=== PATIENT | female | born 1940 | race African-American/Black ===

== ENCOUNTER → 2017-12-13 | Outpatient (CLI) | payer MEDICARE, MEDICAID ==
[~2017-12-13] MED LIST: LEVO25TA7 PO; REGADENOSON 0.4 MG/5 ML IV ONE
== END ==
LOC: NM 07:31
PROVIDERS: ATTEND Internal Medicine Cardiovascular Disease
DX: R06.00 Dyspnea, unspecified (principal); R94.31 Abnormal electrocardiogram [ECG] [EKG]; N18.9 Chronic kidney disease, unspecified; I27.20 Pulmonary hypertension, unspecified
CPT/HCPCS: 78452; A9500; J2785

== ENCOUNTER → 2018-01-17 | Outpatient (CLI) | payer MEDICARE, MEDICAID ==
[~2018-01-17] MED LIST changes: +GADOBENATE DIMEGLUMINE 529 MG/ML 10ML IV ONE; -REGADENOSON 0.4 MG/5 ML IV ONE
== END | disposition home or self-care (01) ==
LOC: MRI 08:20
PROVIDERS: ATTEND Internal Medicine Cardiovascular Disease
DX: I65.22 Occlusion and stenosis of left carotid artery (principal); I27.20 Pulmonary hypertension, unspecified; N18.9 Chronic kidney disease, unspecified; R94.31 Abnormal electrocardiogram [ECG] [EKG]
CPT/HCPCS: 70547; A9577

== ENCOUNTER → 2018-02-23 | Outpatient (CLI) | payer MEDICARE, MEDICAID ==
[~2018-02-23] MED LIST changes: -GADOBENATE DIMEGLUMINE 529 MG/ML 10ML IV ONE
== END | disposition home or self-care (01) ==
LOC: RAD 09:21
PROVIDERS: ATTEND Specialist
DX: M79.604 Pain in right leg (principal); M79.605 Pain in left leg; I13.0 Hypertensive heart and chronic kidney disease with heart failure and stage 1 through stage 4 chronic kidney disease, or unspecified chronic kidney disease; E11.22 Type 2 diabetes mellitus with diabetic chronic kidney disease; N18.9 Chronic kidney disease, unspecified; I50.9 Heart failure, unspecified; E78.5 Hyperlipidemia, unspecified; E03.9 Hypothyroidism, unspecified; Z87.891 Personal history of nicotine dependence
CPT/HCPCS: 93970

== ENCOUNTER 2018-10-19 19:27 | Inpatient (IN) | payer MEDICARE, MEDICAID ==
[~2018-10-19] VITALS: Ht 170.2 cm; Wt 90.3 kg
[2018-10-19] MEDS ORDERED: SODIUM CHLORIDE 0.9% 1,000 ML IV ONE (20:56)
[2018-10-19] MEDS ORDERED: SODIUM CHLORIDE 0.9% 1000ML BAG (SEPSIS BOLUS) IV ONE (21:15)
[2018-10-19] MEDS ORDERED: VANCOMYCIN 500 MG PREMIX 100 ML IV SCH (21:15)
[2018-10-19] MEDS ORDERED: PIPERACILLIN/TAZ 2.25G PREMIX 50 ML IV ONE (21:15)
[2018-10-20] VITALS (9 sets, daily range): BP systolic 89–106; BP diastolic 49–67
[2018-10-20 00:20] LABS: BASOPHILS % 0.9 % (0.0-2.0); EOSINOPHILS % 2.4 % (0.0-5.0); LYMPHOCYTES % 13.4 % (20.0-50.0); MEAN CORPUSCULAR VOLUME 104.6 fL (81.0-99.0); MEAN PLATELET VOLUME 8.5 fl (7.4-10.4); MONOCYTES % 7.8 % (2.0-8.0); NEUTROPHILS % 75.5 % (40.0-76.0); PLATELET 259 x1000/uL (130-400); RED BLOOD CELL COUNT 1.94 mill/uL (4.2-5.4); RED CELL DISTRIBUTION WIDTH 19.3 % (11.6-14.6)
[2018-10-20 00:27] LABS: CHLORIDE 100 mEq/L (98-107)
[2018-10-20 00:29] LABS: INR 1.1; PARTIAL THROMBOPLASTIN TIME 23.9 sec (23.4-31.0); PROTHROMBIN TIME 10.7 sec (9.1-11.1)
[2018-10-20 00:31] LABS: HEMATOCRIT. 20.3 % (36.0-48.0); HEMOGLOBIN. 6.4 g/dL (12.0-16.0)
[2018-10-20 02:40] LABS: CLARITY URINE TURBID (CLEAR); COLOR URINE YELLOW (YELLOW); KETONES URINE TRACE (NEGATIVE); LEUKOCYTE ESTERASE URINE 3+ (NEGATIVE); NITRITE URINE NEGATIVE (NEGATIVE); OCCULT BLOOD URINE 2+ (NEGATIVE); PH URINE 5.5 (4.5-8.0); PROTEIN URINE 3+ (NEGATIVE); SPECIFIC GRAVITY URINE 1.017 (1.005-1.030)
[2018-10-20 02:49] LABS: CREATINE KINASE MB FRACTION 4.5 ng/mL (0.5-3.6)
[2018-10-20] MEDS ORDERED: ONDANSETRON HCL 4MG/2ML INJ IV PRN (10:15)
[2018-10-20] MEDS ORDERED: CEFTRIAXONE 1,000 MG in DEXTROSE 5% WATER 50 ML IV SCH (11:15)
[2018-10-20] MEDS ORDERED: PANTOPRAZOLE SODIUM 40 MG/VIAL IV NR (11:15)
[2018-10-20] MEDS ORDERED: LEVOTHYROXINE SODIUM 50MCG TABLET PO NR (11:15)
[2018-10-20] MEDS: IPRATROPIUM/ALBUTEROL 0.5-3(2.5)MG/3ML NEB HHN SCH ×3 (12:00→20:19)
[2018-10-20] MEDS: CEFTRIAXONE 1 G PREMIX 50 ML IV SCH (14:19)
[2018-10-20] MEDS: LIDOCAINE 5% PATCH TOP SCH (14:36)
[2018-10-20 17:44] LABS: BASOPHILS % 1.1 % (0.0-2.0); EOSINOPHILS % 2.7 % (0.0-5.0); HEMATOCRIT. 23.5 % (36.0-48.0); HEMOGLOBIN. 7.4 g/dL (12.0-16.0); LYMPHOCYTES % 9.3 % (20.0-50.0); MEAN CORPUSCULAR HEMOGLOBIN 32.1 pg (28.0-32.0); MEAN CORPUSCULAR VOLUME 101.5 fL (81.0-99.0); MEAN PLATELET VOLUME 8.7 fl (7.4-10.4); MONOCYTES % 6.2 % (2.0-8.0); NEUTROPHILS % 80.7 % (40.0-76.0); PLATELET 266 x1000/uL (130-400); RED BLOOD CELL COUNT 2.31 mill/uL (4.2-5.4); RED CELL DISTRIBUTION WIDTH 19.8 % (11.6-14.6)
[2018-10-20] MEDS ORDERED: MIDODRINE HCL 5MG TABLET PO ONE (17:45)
[2018-10-20 18:01] LABS: CREATINE KINASE MB FRACTION 5.9 ng/mL (0.5-3.6)
[2018-10-20 18:13] LABS: FOLIC ACID (FOLATE) SERUM 9.2 ng/mL (>5.38)
[2018-10-20] MEDS ORDERED: ALBUMIN HUMAN 25GM/100ML (25%) IV ONE (19:00)
[2018-10-20] MEDS: ACETAMINOPHEN 325MG TABLET PO PRN (20:26)
[2018-10-20] MEDS ORDERED: DEXTROSE 50% WATER 50ML SYRINGE IV PRN (21:45)
[2018-10-21] VITALS (7 sets, daily range): BP systolic 93–125; BP diastolic 48–62
[2018-10-21 00:30] LABS: CREATINE KINASE MB FRACTION 5.7 ng/mL (0.5-3.6)
[2018-10-21] MEDS: EPOETIN ALFA 10000UNITS/ML VIAL SUBCUT SCH (00:54)
[2018-10-21] MEDS: IPRATROPIUM/ALBUTEROL 0.5-3(2.5)MG/3ML NEB HHN SCH ×6 (01:14→20:28)
[2018-10-21] MEDS: BLOOD SUGAR DIAGNOSTIC STRIP TEST SCH ×4 (06:38→21:00)
[2018-10-21] MEDS: INSULIN LISPRO 100 UNITS/ML SUBCUT SCH ×4 (06:38→21:00)
[2018-10-21 08:26] LABS: BG BASE EXCESS -2.1 mmol/L (-2.0-2.0); BG CARBOXYHEMOGLOBIN 1.6 % (0.5-1.5); BG DEOXYHEMOGLOBIN 3.5 % (0.0-5.0); BG FRACTION INSPIRED OXYGEN 28; BG HCO3 ACT 23.8 mmol/L (22.0-26.0); BG METHEMOGLOBIN 0.3 % (0.0-1.5); BG OXYGEN SATURATION 96.4 % (92.0-98.5); BG OXYHEMOGLOBIN 94.6 % (94.0-97.0); BG PCO2 45.7 mmHg (35.0-45.0); BG PH 7.334 (7.350-7.450); BG PO2 92.6 mmHg (75.0-100.0); BG SAMPLE SITE RIGHT RADIAL; BG VENT MODE NASAL CANNULA
[2018-10-21] MEDS: PANTOPRAZOLE SODIUM 40 MG/VIAL IV SCH (08:47)
[2018-10-21] MEDS: LEVOTHYROXINE SODIUM 50MCG TABLET PO SCH (08:47)
[2018-10-21] MEDS: FOLIC ACID/VITAMIN B COMP W-C TABLET PO SCH (08:48)
[2018-10-21] MEDS: CEFTRIAXONE 1 G PREMIX 50 ML IV SCH (08:48)
[2018-10-21] MEDS: DOCUSATE SODIUM 250MG CAPSULE PO SCH (08:48)
[2018-10-21] MEDS: MIDODRINE HCL 5MG TABLET PO SCH ×3 (08:48→17:44)
[2018-10-21 08:49] LABS: BASOPHILS % 0.8 % (0.0-2.0); EOSINOPHILS % 4.2 % (0.0-5.0); HEMATOCRIT. 25.3 % (36.0-48.0); HEMOGLOBIN. 8.2 g/dL (12.0-16.0); LYMPHOCYTES % 7.3 % (20.0-50.0); MEAN CORPUSCULAR HEMOGLOBIN 32.2 pg (28.0-32.0); MEAN CORPUSCULAR VOLUME 99.3 fL (81.0-99.0); MEAN PLATELET VOLUME 8.3 fl (7.4-10.4); MONOCYTES % 8.2 % (2.0-8.0); NEUTROPHILS % 79.5 % (40.0-76.0); PLATELET 209 x1000/uL (130-400); RED BLOOD CELL COUNT 2.55 mill/uL (4.2-5.4); RED CELL DISTRIBUTION WIDTH 19.6 % (11.6-14.6)
[2018-10-21] MEDS: LIDOCAINE 5% PATCH TOP SCH (08:49)
[2018-10-21 09:09] LABS: CREATINE KINASE MB FRACTION 5.1 ng/mL (0.5-3.6)
[2018-10-21] MEDS ORDERED: FURO40TA5 PO (15:47)
[2018-10-21] MEDS ORDERED: LEVO100T9 PO (15:47)
[2018-10-21] MEDS ORDERED: BUDE6.9H INH (15:47)
[2018-10-21] MEDS ORDERED: ATOR40TA70 PO (15:47)
[2018-10-21] MEDS ORDERED: SEVE800T8 PO (15:47)
[2018-10-21] MEDS ORDERED: FUROSEMIDE 40MG/4ML VIAL IVP NR (17:15)
[2018-10-21] MEDS ORDERED: LORAZEPAM 2MG/ML CPJ IV NR (23:14)
[2018-10-21] MEDS ORDERED: LORAZEPAM 0.5MG TABLET PO SCH (23:15)
[2018-10-22] VITALS (7 sets, daily range): BP systolic 114–208; BP diastolic 65–106
[2018-10-22] MEDS: IPRATROPIUM/ALBUTEROL 0.5-3(2.5)MG/3ML NEB HHN SCH ×6 (00:34→20:46)
[2018-10-22] MEDS: BLOOD SUGAR DIAGNOSTIC STRIP TEST SCH ×4 (06:40→20:39)
[2018-10-22 07:44] LABS: INR 1.1; PARTIAL THROMBOPLASTIN TIME 26.1 sec (23.4-31.0); PROTHROMBIN TIME 10.7 sec (9.1-11.1)
[2018-10-22] MEDS: INSULIN LISPRO 100 UNITS/ML SUBCUT SCH ×4 (07:53→20:39)
[2018-10-22 08:08] LABS: HEMATOCRIT. 27.4 % (36.0-48.0); HEMOGLOBIN. 8.9 g/dL (12.0-16.0); MEAN CORPUSCULAR HEMOGLOBIN 32.3 pg (28.0-32.0); MEAN CORPUSCULAR VOLUME 99.7 fL (81.0-99.0); MEAN PLATELET VOLUME 8.7 fl (7.4-10.4); PLATELET 234 x1000/uL (130-400); RED BLOOD CELL COUNT 2.74 mill/uL (4.2-5.4)
[2018-10-22 08:31] LABS: CHLORIDE 103 mEq/L (98-107)
[2018-10-22] MEDS: MIDODRINE HCL 5MG TABLET PO SCH ×3 (09:00→18:27)
[2018-10-22] MEDS: DOCUSATE SODIUM 250MG CAPSULE PO SCH ×2 (09:00→09:44)
[2018-10-22] MEDS: FOLIC ACID/VITAMIN B COMP W-C TABLET PO SCH ×2 (09:00→09:44)
[2018-10-22] MEDS: LIDOCAINE 5% PATCH TOP SCH (09:00)
[2018-10-22] MEDS: PANTOPRAZOLE SODIUM 40 MG/VIAL IV SCH (09:44)
[2018-10-22] MEDS: CEFTRIAXONE 1 G PREMIX 50 ML IV SCH (09:44)
[2018-10-22] MEDS: METHYLPREDNISOLONE SOD SUCC 40 MG/ML VIAL IV SCH ×2 (10:00→18:26)
[2018-10-22 10:02] LABS: PLATELET ESTIMATE NORMAL
[2018-10-22] MEDS ORDERED: IPRATROPIUM/ALBUTEROL 0.5-3(2.5)MG/3ML NEB HHN PRN (10:30)
[2018-10-22 10:45] LABS: BG BASE EXCESS -0.3 mmol/L (-2.0-2.0); BG CARBOXYHEMOGLOBIN 1.1 % (0.5-1.5); BG DEOXYHEMOGLOBIN 4.7 % (0.0-5.0); BG FRACTION INSPIRED OXYGEN 32; BG HCO3 ACT 26.4 mmol/L (22.0-26.0); BG METHEMOGLOBIN 0.3 % (0.0-1.5); BG OXYGEN SATURATION 95.2 % (92.0-98.5); BG OXYHEMOGLOBIN 93.9 % (94.0-97.0); BG PCO2 53.1 mmHg (35.0-45.0); BG PH 7.314 (7.350-7.450); BG PO2 79.4 mmHg (75.0-100.0); BG SAMPLE SITE RIGHT RADIAL; BG TOTAL HEMOGLOBIN 9.8 g/dL (12.0-18.0); BG VENT MODE NASAL CANNULA
[2018-10-22] MEDS: MONTELUKAST SODIUM 10MG TABLET PO SCH (18:27)
[2018-10-22 18:44] LABS: HEMATOCRIT 28.7 % (36.0-48.0); HEMOGLOBIN 9.1 g/dL (12.0-16.0)
[2018-10-22] MEDS: CLONIDINE 0.1MG TABLET PO PRN (20:16)
[2018-10-22] MEDS ORDERED: HYDRALAZINE 20MG/ML VIAL IV SCH (23:30)
[2018-10-22] MEDS ORDERED: AMLODIPINE 5MG TABLET PO SCH (23:30)
[2018-10-22] MEDS ORDERED: HYDRALAZINE 20MG/ML VIAL IV PRN ×2 (23:30)
[2018-10-22] MEDS ORDERED: HYDRALAZINE 20MG/ML VIAL IV ONE (23:30)
[2018-10-22] MEDS ORDERED: AMLODIPINE 5MG TABLET PO ONE (23:30)
[2018-10-23] VITALS (9 sets, daily range): BP systolic 125–200; BP diastolic 54–116
[2018-10-23] MEDS: IPRATROPIUM/ALBUTEROL 0.5-3(2.5)MG/3ML NEB HHN SCH ×6 (00:27→21:33)
[2018-10-23] MEDS: CLONIDINE 0.1MG TABLET PO PRN ×2 (02:36→21:21)
[2018-10-23] MEDS: METHYLPREDNISOLONE SOD SUCC 40 MG/ML VIAL IV SCH ×3 (02:36→17:56)
[2018-10-23 05:52] LABS: HEMATOCRIT. 28.8 % (36.0-48.0); HEMOGLOBIN. 9.3 g/dL (12.0-16.0); MEAN CORPUSCULAR HEMOGLOBIN 32.6 pg (28.0-32.0); MEAN CORPUSCULAR VOLUME 100.7 fL (81.0-99.0); MEAN PLATELET VOLUME 8.9 fl (7.4-10.4); PLATELET 225 x1000/uL (130-400); RED BLOOD CELL COUNT 2.86 mill/uL (4.2-5.4); RED CELL DISTRIBUTION WIDTH 18.8 % (11.6-14.6)
[2018-10-23] MEDS: BLOOD SUGAR DIAGNOSTIC STRIP TEST SCH ×4 (07:30→21:15)
[2018-10-23] MEDS: INSULIN LISPRO 100 UNITS/ML SUBCUT SCH ×4 (08:00→21:15)
[2018-10-23] MEDS ORDERED: AMLODIPINE 5MG TABLET PO SCH (09:00)
[2018-10-23] MEDS: MIDODRINE HCL 5MG TABLET PO SCH ×4 (09:00→17:00)
[2018-10-23 10:24] LABS: PLATELET ESTIMATE NORMAL
[2018-10-23] MEDS: PANTOPRAZOLE SODIUM 40 MG/VIAL IV SCH (11:13)
[2018-10-23] MEDS: DOCUSATE SODIUM 250MG CAPSULE PO SCH (11:13)
[2018-10-23] MEDS: CEFTRIAXONE 1 G PREMIX 50 ML IV SCH (11:13)
[2018-10-23] MEDS: LEVOTHYROXINE SODIUM 50MCG TABLET PO SCH (11:14)
[2018-10-23] MEDS: AMLODIPINE 5MG TABLET PO SCH ×2 (11:14→21:20)
[2018-10-23] MEDS: FOLIC ACID/VITAMIN B COMP W-C TABLET PO SCH (11:15)
[2018-10-23] MEDS: LIDOCAINE 5% PATCH TOP SCH (13:03)
[2018-10-23] MEDS ORDERED: ALBUMIN HUMAN 12.5GM/50ML (25%) IV PRN (14:45)
[2018-10-23] MEDS: MONTELUKAST SODIUM 10MG TABLET PO SCH (17:56)
[2018-10-23] MEDS: EPOETIN ALFA 10000UNITS/ML VIAL SUBCUT SCH (21:23)
[2018-10-24] VITALS (11 sets, daily range): BP systolic 84–166; BP diastolic 25–89
[2018-10-24] MEDS: METHYLPREDNISOLONE SOD SUCC 40 MG/ML VIAL IV SCH ×3 (01:07→17:45)
[2018-10-24] MEDS: LEVOTHYROXINE SODIUM 50MCG TABLET PO SCH ×2 (07:30→08:37)
[2018-10-24] MEDS: INSULIN LISPRO 100 UNITS/ML SUBCUT SCH ×4 (08:00→21:00)
[2018-10-24] MEDS: BLOOD SUGAR DIAGNOSTIC STRIP TEST SCH ×4 (08:13→21:00)
[2018-10-24] MEDS: IPRATROPIUM/ALBUTEROL 0.5-3(2.5)MG/3ML NEB HHN SCH ×5 (08:13→23:58)
[2018-10-24] MEDS: DOCUSATE SODIUM 250MG CAPSULE PO SCH (08:37)
[2018-10-24] MEDS: CEFTRIAXONE 1 G PREMIX 50 ML IV SCH (08:37)
[2018-10-24] MEDS: FAMOTIDINE 20MG TABLET PO SCH (08:38)
[2018-10-24] MEDS: AMLODIPINE 5MG TABLET PO SCH ×2 (08:38→21:00)
[2018-10-24] MEDS: FOLIC ACID/VITAMIN B COMP W-C TABLET PO SCH (08:38)
[2018-10-24] MEDS: MIDODRINE HCL 5MG TABLET PO SCH ×3 (08:45→17:47)
[2018-10-24] MEDS: LIDOCAINE 5% PATCH TOP SCH (08:47)
[2018-10-24] MEDS ORDERED: LIDOCAINE HCL 1% 20ML VIAL (Pyxis) INJ ONE (13:11)
[2018-10-24] MEDS: MONTELUKAST SODIUM 10MG TABLET PO SCH (17:47)
[2018-10-25] VITALS (12 sets, daily range): BP systolic 84–123; BP diastolic 36–85
[2018-10-25] MEDS: IPRATROPIUM/ALBUTEROL 0.5-3(2.5)MG/3ML NEB HHN SCH ×5 (04:12→20:31)
[2018-10-25] MEDS: BLOOD SUGAR DIAGNOSTIC STRIP TEST SCH ×4 (07:30→21:00)
[2018-10-25] MEDS: INSULIN LISPRO 100 UNITS/ML SUBCUT SCH ×4 (08:00→21:00)
[2018-10-25] MEDS: AMLODIPINE 5MG TABLET PO SCH ×2 (09:00→21:00)
[2018-10-25] MEDS: LIDOCAINE 5% PATCH TOP SCH (09:00)
[2018-10-25] MEDS: CEFTRIAXONE 1 G PREMIX 50 ML IV SCH (10:44)
[2018-10-25] MEDS: FAMOTIDINE 20MG TABLET PO SCH (10:45)
[2018-10-25] MEDS: FOLIC ACID/VITAMIN B COMP W-C TABLET PO SCH (10:45)
[2018-10-25] MEDS: DOCUSATE SODIUM 250MG CAPSULE PO SCH (10:45)
[2018-10-25] MEDS: METHYLPREDNISOLONE SOD SUCC 40 MG/ML VIAL IV SCH ×2 (10:45→18:42)
[2018-10-25] MEDS: MIDODRINE HCL 5MG TABLET PO SCH ×3 (10:45→18:43)
[2018-10-25] MEDS: LEVOTHYROXINE SODIUM 50MCG TABLET PO SCH (10:52)
[2018-10-25] MEDS ORDERED: SIMETHICONE 40 MG/0.6 ML 30ML ONE (15:35)
[2018-10-25] MEDS ORDERED: SODIUM CHLORIDE 0.9% 10ML VIAL ONE (15:35)
[2018-10-25] MEDS ORDERED: FENTANYL CITRATE/PF 50MCG/ML 2ML VIAL ONE (17:02)
[2018-10-25] MEDS ORDERED: MIDAZOLAM HCL 5 MG/5 ML VIAL ONE (17:02)
[2018-10-25] MEDS ORDERED: MIDAZOLAM HCL 5 MG/5 ML VIAL IV PRN (17:14)
[2018-10-25] MEDS ORDERED: FENTANYL CITRATE/PF 50MCG/ML 2ML VIAL IV PRN (17:15)
[2018-10-25] MEDS: MONTELUKAST SODIUM 10MG TABLET PO SCH (18:43)
[2018-10-25] MEDS: EPOETIN ALFA 10000UNITS/ML VIAL SUBCUT SCH (22:50)
[2018-10-25] MEDS: ACETAMINOPHEN 325MG TABLET PO PRN (22:50)
[2018-10-26] VITALS (12 sets, daily range): BP systolic 81–131; BP diastolic 32–77
[2018-10-26] MEDS: IPRATROPIUM/ALBUTEROL 0.5-3(2.5)MG/3ML NEB HHN SCH ×6 (00:22→20:22)
[2018-10-26 06:55] LABS: HEMATOCRIT. 29.1 % (36.0-48.0); HEMOGLOBIN. 9.5 g/dL (12.0-16.0); MEAN CORPUSCULAR HEMOGLOBIN 32.4 pg (28.0-32.0); MEAN CORPUSCULAR VOLUME 99.6 fL (81.0-99.0); MEAN PLATELET VOLUME 8.5 fl (7.4-10.4); PLATELET 200 x1000/uL (130-400); RED BLOOD CELL COUNT 2.92 mill/uL (4.2-5.4); RED CELL DISTRIBUTION WIDTH 17.5 % (11.6-14.6)
[2018-10-26] MEDS: BLOOD SUGAR DIAGNOSTIC STRIP TEST SCH ×4 (07:30→21:00)
[2018-10-26] MEDS: INSULIN LISPRO 100 UNITS/ML SUBCUT SCH ×4 (08:00→21:00)
[2018-10-26] MEDS: LIDOCAINE 5% PATCH TOP SCH (09:00)
[2018-10-26] MEDS: AMLODIPINE 5MG TABLET PO SCH ×2 (09:00→20:49)
[2018-10-26] MEDS: METHYLPREDNISOLONE SOD SUCC 40 MG/ML VIAL IV SCH (09:03)
[2018-10-26] MEDS: CEFTRIAXONE 1 G PREMIX 50 ML IV SCH (09:03)
[2018-10-26] MEDS: MIDODRINE HCL 5MG TABLET PO SCH ×3 (09:05→17:00)
[2018-10-26] MEDS: FAMOTIDINE 20MG TABLET PO SCH (09:05)
[2018-10-26] MEDS: LEVOTHYROXINE SODIUM 50MCG TABLET PO SCH (09:05)
[2018-10-26] MEDS: DOCUSATE SODIUM 250MG CAPSULE PO SCH (09:06)
[2018-10-26] MEDS: FOLIC ACID/VITAMIN B COMP W-C TABLET PO SCH (09:06)
[2018-10-26] MEDS ORDERED: LIDOCAINE HCL/PF 1% 2ML VIAL ONE (14:58)
[2018-10-26 15:51] LABS: PLATELET ESTIMATE NORMAL
[2018-10-26] MEDS: MONTELUKAST SODIUM 10MG TABLET PO SCH (18:12)
[2018-10-27] VITALS (9 sets, daily range): BP systolic 100–157; BP diastolic 70–99
[2018-10-27] MEDS: IPRATROPIUM/ALBUTEROL 0.5-3(2.5)MG/3ML NEB HHN SCH ×6 (00:01→20:50)
[2018-10-27 06:33] LABS: BASOPHILS % 0.3 % (0.0-2.0); HEMOGLOBIN. 9.9 g/dL (12.0-16.0); LYMPHOCYTES % 10.3 % (20.0-50.0); MEAN CORPUSCULAR HEMOGLOBIN 32.1 pg (28.0-32.0); MEAN CORPUSCULAR VOLUME 100.7 fL (81.0-99.0); MEAN PLATELET VOLUME 8.8 fl (7.4-10.4); MONOCYTES % 8.7 % (2.0-8.0); NEUTROPHILS % 79.7 % (40.0-76.0); PLATELET 211 x1000/uL (130-400); RED BLOOD CELL COUNT 3.08 mill/uL (4.2-5.4); RED CELL DISTRIBUTION WIDTH 17.3 % (11.6-14.6)
[2018-10-27] MEDS: LEVOTHYROXINE SODIUM 50MCG TABLET PO SCH (07:49)
[2018-10-27] MEDS: BLOOD SUGAR DIAGNOSTIC STRIP TEST SCH ×4 (07:49→21:00)
[2018-10-27] MEDS: INSULIN LISPRO 100 UNITS/ML SUBCUT SCH ×4 (07:50→21:00)
[2018-10-27] MEDS: FOLIC ACID/VITAMIN B COMP W-C TABLET PO SCH (08:14)
[2018-10-27] MEDS: MIDODRINE HCL 5MG TABLET PO SCH ×3 (08:15→17:00)
[2018-10-27] MEDS: DOCUSATE SODIUM 250MG CAPSULE PO SCH (08:15)
[2018-10-27] MEDS: AMLODIPINE 5MG TABLET PO SCH ×2 (08:15→21:00)
[2018-10-27] MEDS: FAMOTIDINE 20MG TABLET PO SCH (08:15)
[2018-10-27] MEDS: PREDNISONE 20MG TABLET PO SCH (08:16)
[2018-10-27] MEDS: LIDOCAINE 5% PATCH TOP SCH (08:18)
[2018-10-27] MEDS: CEFTRIAXONE 1 G PREMIX 50 ML IV SCH (08:19)
[2018-10-27] MEDS: MONTELUKAST SODIUM 10MG TABLET PO SCH (17:00)
[2018-10-28] VITALS (7 sets, daily range): BP systolic 101–143; BP diastolic 66–86
[2018-10-28] MEDS: BLOOD SUGAR DIAGNOSTIC STRIP TEST SCH ×4 (07:30→20:53)
[2018-10-28] MEDS: INSULIN LISPRO 100 UNITS/ML SUBCUT SCH ×4 (08:00→20:53)
[2018-10-28] MEDS: IPRATROPIUM/ALBUTEROL 0.5-3(2.5)MG/3ML NEB HHN SCH ×3 (08:00→19:53)
[2018-10-28] MEDS: LIDOCAINE 5% PATCH TOP SCH (08:24)
[2018-10-28] MEDS ORDERED: CLONIDINE 0.1MG TABLET PO SCH (08:30)
[2018-10-28] MEDS: MIDODRINE HCL 5MG TABLET PO SCH ×3 (09:00→17:00)
[2018-10-28 10:18] LABS: BASOPHILS % 0.5 % (0.0-2.0); EOSINOPHILS % 0.7 % (0.0-5.0); HEMATOCRIT. 32.3 % (36.0-48.0); HEMOGLOBIN. 10.2 g/dL (12.0-16.0); LYMPHOCYTES % 8.3 % (20.0-50.0); MEAN CORPUSCULAR HEMOGLOBIN 31.7 pg (28.0-32.0); MEAN CORPUSCULAR VOLUME 100.1 fL (81.0-99.0); MEAN PLATELET VOLUME 9.1 fl (7.4-10.4); MONOCYTES % 7.2 % (2.0-8.0); NEUTROPHILS % 83.3 % (40.0-76.0); PLATELET 214 x1000/uL (130-400); RED BLOOD CELL COUNT 3.23 mill/uL (4.2-5.4); RED CELL DISTRIBUTION WIDTH 16.7 % (11.6-14.6)
[2018-10-28] MEDS: LEVOTHYROXINE SODIUM 50MCG TABLET PO SCH (12:59)
[2018-10-28] MEDS: DOCUSATE SODIUM 250MG CAPSULE PO SCH (12:59)
[2018-10-28] MEDS: AMLODIPINE 5MG TABLET PO SCH ×2 (12:59→20:47)
[2018-10-28] MEDS: FOLIC ACID/VITAMIN B COMP W-C TABLET PO SCH (13:00)
[2018-10-28] MEDS: PREDNISONE 20MG TABLET PO SCH (13:00)
[2018-10-28] MEDS: OMEPRAZOLE 20MG CAPSULE EXTENDED RELEASE PO SCH ×2 (13:00→20:47)
[2018-10-28] MEDS: MONTELUKAST SODIUM 10MG TABLET PO SCH (17:00)
[2018-10-29] VITALS (12 sets, daily range): BP systolic 97–139; BP diastolic 45–83
[2018-10-29] MEDS: IPRATROPIUM/ALBUTEROL 0.5-3(2.5)MG/3ML NEB HHN SCH ×4 (00:30→12:49)
[2018-10-29] MEDS: INSULIN LISPRO 100 UNITS/ML SUBCUT SCH ×2 (08:00→12:49)
[2018-10-29] MEDS: BLOOD SUGAR DIAGNOSTIC STRIP TEST SCH ×2 (08:27→12:42)
[2018-10-29] MEDS: AMLODIPINE 5MG TABLET PO SCH (09:00)
[2018-10-29 09:49] LABS: BG BASE EXCESS 0.4 mmol/L (-2.0-2.0); BG CARBOXYHEMOGLOBIN 0.8 % (0.5-1.5); BG DEOXYHEMOGLOBIN 26.7 % (0.0-5.0); BG FRACTION INSPIRED OXYGEN 21; BG HCO3 ACT 27.2 mmol/L (22.0-26.0); BG OXYGEN SATURATION 73.1 % (92.0-98.5); BG OXYHEMOGLOBIN 72.5 % (94.0-97.0); BG PCO2 54.7 mmHg (35.0-45.0); BG PH 7.314 (7.350-7.450); BG PO2 39.8 mmHg (75.0-100.0); BG SAMPLE SITE RIGHT BRACHIAL; BG TOTAL HEMOGLOBIN 10.4 g/dL (12.0-18.0); BG VENT MODE ROOM AIR
[2018-10-29] MEDS: PREDNISONE 20MG TABLET PO SCH (10:01)
[2018-10-29] MEDS: OMEPRAZOLE 20MG CAPSULE EXTENDED RELEASE PO SCH (10:01)
[2018-10-29] MEDS: LEVOTHYROXINE SODIUM 50MCG TABLET PO SCH (10:01)
[2018-10-29] MEDS: DOCUSATE SODIUM 250MG CAPSULE PO SCH (10:02)
[2018-10-29] MEDS: MIDODRINE HCL 5MG TABLET PO SCH ×2 (10:02→14:10)
[2018-10-29] MEDS: FOLIC ACID/VITAMIN B COMP W-C TABLET PO SCH (10:02)
[2018-10-29] MEDS: LIDOCAINE 5% PATCH TOP SCH (10:06)
[2018-10-29] MEDS ORDERED: IOHEXOL-350 100 ML BOTTLE ONE (11:41)
[2018-10-30] MEDS ORDERED: FAMOTIDINE 20MG TABLET PO SCH (09:00)
== END 2018-10-29 15:33 | disposition home or self-care (01) | DRG 720 ==
LOC: ER 21:04 → EDBEDREQ 23:24 → EDBEDREQSVC 10-20 01:12 → EDBEDREQ 10-20 01:12 → 7WST 10-20 02:16 → EDBEDREQ 10-20 02:21 → EDBEDREQTM 10-20 02:21 → EDBEDREQSVC 10-20 05:24 → ENRESERV 10-20 07:33 → 5EST 10-22 11:42
PROVIDERS: ADMIT Emergency Medicine; ATTEND Internal Medicine Geriatric Medicine
PROC: 30233N1 Transfusion of Nonautologous Red Blood Cells into Peripheral Vein, Percutaneous Approach (ICD-10-PCS; principal; 2018-10-20)
PROC: 5A1D70Z Performance of Urinary Filtration, Intermittent, Less than 6 Hours Per Day (ICD-10-PCS; 2018-10-20)
PROC: 5A1D70Z Performance of Urinary Filtration, Intermittent, Less than 6 Hours Per Day (ICD-10-PCS; 2018-10-21)
PROC: 5A1D70Z Performance of Urinary Filtration, Intermittent, Less than 6 Hours Per Day (ICD-10-PCS; 2018-10-22)
PROC: 5A09357 Assistance with Respiratory Ventilation, Less than 24 Consecutive Hours, Continuous Positive Airway Pressure (ICD-10-PCS; 2018-10-23)
PROC: 05HY33Z Insertion of Infusion Device into Upper Vein, Percutaneous Approach (ICD-10-PCS; 2018-10-24)
PROC: B54MZZA Ultrasonography of Right Upper Extremity Veins, Guidance (ICD-10-PCS; 2018-10-24)
PROC: 5A1D70Z Performance of Urinary Filtration, Intermittent, Less than 6 Hours Per Day (ICD-10-PCS; 2018-10-24)
PROC: 5A09357 Assistance with Respiratory Ventilation, Less than 24 Consecutive Hours, Continuous Positive Airway Pressure (ICD-10-PCS; 2018-10-24)
PROC: 0DB68ZX Excision of Stomach, Via Natural or Artificial Opening Endoscopic, Diagnostic (ICD-10-PCS; 2018-10-25)
PROC: 5A1D70Z Performance of Urinary Filtration, Intermittent, Less than 6 Hours Per Day (ICD-10-PCS; 2018-10-25)
PROC: 5A1D70Z Performance of Urinary Filtration, Intermittent, Less than 6 Hours Per Day (ICD-10-PCS; 2018-10-26)
PROC: 5A1D70Z Performance of Urinary Filtration, Intermittent, Less than 6 Hours Per Day (ICD-10-PCS; 2018-10-27)
PROC: 5A09357 Assistance with Respiratory Ventilation, Less than 24 Consecutive Hours, Continuous Positive Airway Pressure (ICD-10-PCS; 2018-10-27)
DX: A41.9 Sepsis, unspecified organism (principal); J96.20 Acute and chronic respiratory failure, unspecified whether with hypoxia or hypercapnia; I13.2 Hypertensive heart and chronic kidney disease with heart failure and with stage 5 chronic kidney disease, or end stage renal disease; K29.61 Other gastritis with bleeding; E11.22 Type 2 diabetes mellitus with diabetic chronic kidney disease; N18.6 End stage renal disease; I08.3 Combined rheumatic disorders of mitral, aortic and tricuspid valves; E11.42 Type 2 diabetes mellitus with diabetic polyneuropathy; I50.23 Acute on chronic systolic (congestive) heart failure; E11.51 Type 2 diabetes mellitus with diabetic peripheral angiopathy without gangrene; D53.9 Nutritional anemia, unspecified; G89.29 Other chronic pain; E66.9 Obesity, unspecified; E03.9 Hypothyroidism, unspecified; Z99.2 Dependence on renal dialysis; D63.8 Anemia in other chronic diseases classified elsewhere; F41.1 Generalized anxiety disorder; I27.20 Pulmonary hypertension, unspecified; J44.1 Chronic obstructive pulmonary disease with (acute) exacerbation; K44.9 Diaphragmatic hernia without obstruction or gangrene; N39.0 Urinary tract infection, site not specified; Z79.51 Long term (current) use of inhaled steroids; Z79.899 Other long term (current) drug therapy; Z90.710 Acquired absence of both cervix and uterus; Z95.820 Peripheral vascular angioplasty status with implants and grafts; Z88.5 Allergy status to narcotic agent; Z88.8 Allergy status to other drugs, medicaments and biological substances; Z68.31 Body mass index [BMI] 31.0-31.9, adult; Z87.891 Personal history of nicotine dependence
CPT/HCPCS: 36415; 36569; 36600; 70498; 71045; 74176; 76937; 78580; 80048; 82270; 82375; 82550; 82553; 82607; 82746; 82805; 82962; 83605; 83880; 84443; 84484; 85014; 85018; 86850; 86900; 86920; 88305; 88312; 88313; 93005; 93306; 93880; 94640; 94660; 96365; 96367; 96368; 96375; 97161; 99285; C1725; C1893; C9113; J0360; J0696; J0885; J1815; J1940; J2060; J2250; J2543; J2920; J3010; J3370; J3490; J7030; J7040; J7050; J7512; J7620; P9016; P9047; Q9967

== ENCOUNTER 2020-01-01 14:09 | Inpatient (IN) | payer MEDICARE, MEDICAID ==
[~2020-01-01] VITALS: Ht 175.3 cm; Wt 93.4 kg
[~2020-01-01 14:09] MED LIST changes: +FURO40TA5 PO; -LEVO25TA7 PO
[2020-01-01] MEDS ORDERED: METHYLPREDNISOLONE SOD SUCC 125 MG/2 ML VIAL IV STA (14:31)
[2020-01-01] MEDS ORDERED: IPRATROPIUM BROMIDE (0.02%) 0.5MG/2.5ML NEB HHN STA (14:31)
[2020-01-01] MEDS ORDERED: MAGNESIUM 2 G PREMIX 50 ML IV ONE (14:45)
[2020-01-01 14:53] LABS: HEMATOCRIT. 30.8 % (36.0-48.0); HEMOGLOBIN. 10.1 g/dL (12.0-16.0); MEAN CORPUSCULAR HEMOGLOBIN 31.5 pg (28.0-32.0); MEAN PLATELET VOLUME 8.9 fl (7.4-10.4); PLATELET 255 x1000/uL (130-400); RED BLOOD CELL COUNT 3.21 mill/uL (4.2-5.4)
[2020-01-01] MEDS: ALBUTEROL (0.083%) 2.5MG/3ML NEB HHN SCH (14:55)
[2020-01-01 15:00] LABS: PROTHROMBIN TIME 10.8 sec (9.6-11.0)
[2020-01-01 15:01] LABS: CHLORIDE 107 mEq/L (98-107)
[2020-01-01 16:28] LABS: PLATELET ESTIMATE NORMAL
[2020-01-01] MEDS ORDERED: MAGNESIUM/ALUMINUM HYDROXIDE/SIMETHICONE 30ML UDC PO PRN (17:45)
[2020-01-01] MEDS ORDERED: IPRATROPIUM/ALBUTEROL 0.5-3(2.5)MG/3ML NEB HHN PRN (17:45)
[2020-01-01] MEDS ORDERED: TEMAZEPAM 15MG CAPSULE PO PRN (17:45)
[2020-01-01] MEDS ORDERED: DIPHENHYDRAMINE 50MG/ML VIAL IV PRN (17:45)
[2020-01-01] MEDS ORDERED: ONDANSETRON HCL 4MG/2ML INJ IV PRN (17:45)
[2020-01-01] MEDS ORDERED: GUAIFENESIN 200MG/10ML SUGAR FREE UDC PO PRN (17:45)
[2020-01-01] MEDS ORDERED: CLONIDINE 0.1MG TABLET PO PRN (17:45)
[2020-01-01] MEDS ORDERED: ACETAMINOPHEN 325MG TABLET PO PRN (17:45)
[2020-01-01 18:15] VITALS: BP 132/100
[2020-01-01 18:23] VITALS: BP 132/100
[2020-01-01] MEDS ORDERED: NEPVIT MT (18:47)
[2020-01-01] MEDS ORDERED: ATOR10TA69 MT (18:47)
[2020-01-01] MEDS ORDERED: SEVE800T8 MT (18:47)
[2020-01-01] MEDS ORDERED: LEVO25TA7 MT (18:47)
[2020-01-01] MEDS ORDERED: BUDE6.9H INH (18:47)
[2020-01-01] MEDS ORDERED: ALBU18HF2 IH (18:47)
[2020-01-01 20:00] VITALS: BP 131/82
[2020-01-01] MEDS: ATORVASTATIN CALCIUM 10MG TABLET PO SCH (21:00)
[2020-01-01] MEDS: IPRATROPIUM/ALBUTEROL 0.5-3(2.5)MG/3ML NEB HHN SCH (21:23)
[2020-01-01] MEDS: BUDESONIDE 0.5MG/2ML NEB HHN SCH (21:24)
[2020-01-01] MEDS: GUAIFENESIN 600MG ER TABLET PO SCH (21:29)
[2020-01-01] MEDS: ENOXAPARIN 40MG/0.4ML SYR SUBCUT SCH (21:29)
[2020-01-01] MEDS: SODIUM CHLORIDE 0.9% INJ 3ML FLUSH IVF SCH (21:30)
[2020-01-01] MEDS: METHYLPREDNISOLONE SOD SUCC 125 MG/2 ML VIAL IV SCH (21:34)
[2020-01-02] VITALS (7 sets, daily range): BP systolic 99–109; BP diastolic 62–71
[2020-01-02] MEDS: IPRATROPIUM/ALBUTEROL 0.5-3(2.5)MG/3ML NEB HHN SCH ×4 (00:52→21:51)
[2020-01-02] MEDS: METHYLPREDNISOLONE SOD SUCC 125 MG/2 ML VIAL IV SCH ×2 (05:04→16:26)
[2020-01-02] MEDS: SODIUM CHLORIDE 0.9% INJ 3ML FLUSH IVF SCH ×3 (05:05→21:41)
[2020-01-02] MEDS: SEVELAMER CARBONATE 800 MG TABLET PO SCH ×3 (08:41→17:50)
[2020-01-02] MEDS: FOLIC ACID/VITAMIN B COMP W-C TABLET PO SCH (08:41)
[2020-01-02] MEDS: CALCITRIOL 0.25MCG CAPSULE PO SCH (08:41)
[2020-01-02] MEDS: GUAIFENESIN 600MG ER TABLET PO SCH ×2 (08:42→20:59)
[2020-01-02] MEDS ORDERED: CHOLECALCIFEROL (VIT D3) 400 UNIT TABLET PO SCH (09:00)
[2020-01-02] MEDS: BUDESONIDE 0.5MG/2ML NEB HHN SCH ×2 (09:14→21:50)
[2020-01-02] MEDS: ENOXAPARIN 40MG/0.4ML SYR SUBCUT SCH (20:59)
[2020-01-02] MEDS: ATORVASTATIN CALCIUM 10MG TABLET PO SCH (21:01)
[2020-01-03 00:17] VITALS: BP 113/75
[2020-01-03] MEDS: IPRATROPIUM/ALBUTEROL 0.5-3(2.5)MG/3ML NEB HHN SCH ×4 (03:28→20:15)
[2020-01-03 04:00] VITALS: BP 95/57
[2020-01-03] MEDS: SODIUM CHLORIDE 0.9% INJ 3ML FLUSH IVF SCH ×3 (06:30→21:08)
[2020-01-03 08:00] VITALS: BP 121/45
[2020-01-03] MEDS: BUDESONIDE 0.5MG/2ML NEB HHN SCH ×2 (08:04→20:10)
[2020-01-03] MEDS: GUAIFENESIN 600MG ER TABLET PO SCH ×2 (08:32→20:06)
[2020-01-03] MEDS: SEVELAMER CARBONATE 800 MG TABLET PO SCH ×3 (08:32→18:32)
[2020-01-03] MEDS: FOLIC ACID/VITAMIN B COMP W-C TABLET PO SCH (08:32)
[2020-01-03] MEDS: ACETAMINOPHEN 325MG TABLET PO PRN (08:32)
[2020-01-03] MEDS: METHYLPREDNISOLONE SOD SUCC 40 MG/ML VIAL IV SCH ×2 (08:32→18:32)
[2020-01-03] MEDS: CALCITRIOL 0.25MCG CAPSULE PO SCH (08:33)
[2020-01-03 12:00] VITALS: BP 105/60
[2020-01-03] MEDS ORDERED: LIDOCAINE HCL 1% 20ML VIAL (Pyxis) INJ ONE (13:29)
[2020-01-03 16:00] VITALS: BP 113/52
[2020-01-03] MEDS ORDERED: IOHEXOL-350 100 ML BOTTLE ONE (16:19)
[2020-01-03 20:00] VITALS: BP 99/50
[2020-01-03] MEDS: ATORVASTATIN CALCIUM 10MG TABLET PO SCH (20:06)
[2020-01-03] MEDS: ENOXAPARIN 40MG/0.4ML SYR SUBCUT SCH (20:07)
[2020-01-04] VITALS: BP 100/50
[2020-01-04] MEDS: IPRATROPIUM/ALBUTEROL 0.5-3(2.5)MG/3ML NEB HHN SCH ×4 (02:38→21:31)
[2020-01-04 04:00] VITALS: BP 98/53
[2020-01-04] MEDS: SODIUM CHLORIDE 0.9% INJ 3ML FLUSH IVF SCH ×2 (05:28→13:29)
[2020-01-04 08:00] VITALS: BP 112/62
[2020-01-04] MEDS: FOLIC ACID/VITAMIN B COMP W-C TABLET PO SCH (08:10)
[2020-01-04] MEDS: CALCITRIOL 0.25MCG CAPSULE PO SCH (08:10)
[2020-01-04] MEDS: SEVELAMER CARBONATE 800 MG TABLET PO SCH ×4 (08:10→17:19)
[2020-01-04] MEDS: METHYLPREDNISOLONE SOD SUCC 40 MG/ML VIAL IV SCH ×2 (08:10→17:20)
[2020-01-04] MEDS: GUAIFENESIN 600MG ER TABLET PO SCH ×2 (08:10→21:01)
[2020-01-04 12:00] VITALS: BP 127/77
[2020-01-04 16:00] VITALS: BP 90/52
[2020-01-04 20:28] VITALS: BP 101/55
[2020-01-04] MEDS: ATORVASTATIN CALCIUM 10MG TABLET PO SCH (21:01)
[2020-01-04] MEDS: ENOXAPARIN 40MG/0.4ML SYR SUBCUT SCH (21:01)
[2020-01-04] MEDS: BUDESONIDE 0.5MG/2ML NEB HHN SCH (21:30)
[2020-01-05 00:17] VITALS: BP 106/61
[2020-01-05] MEDS: IPRATROPIUM/ALBUTEROL 0.5-3(2.5)MG/3ML NEB HHN SCH ×4 (01:16→21:51)
[2020-01-05 04:57] VITALS: BP 100/60
[2020-01-05] MEDS: SODIUM CHLORIDE 0.9% INJ 3ML FLUSH IVF SCH ×3 (05:15→21:14)
[2020-01-05 08:00] VITALS: BP 108/73
[2020-01-05] MEDS: CALCITRIOL 0.25MCG CAPSULE PO SCH (08:45)
[2020-01-05] MEDS: GUAIFENESIN 600MG ER TABLET PO SCH ×2 (08:45→20:30)
[2020-01-05] MEDS: FOLIC ACID/VITAMIN B COMP W-C TABLET PO SCH (08:45)
[2020-01-05] MEDS: SEVELAMER CARBONATE 800 MG TABLET PO SCH ×3 (08:46→17:54)
[2020-01-05] MEDS: METHYLPREDNISOLONE SOD SUCC 40 MG/ML VIAL IV SCH ×2 (10:13→18:05)
[2020-01-05 16:00] VITALS: BP 120/65
[2020-01-05 20:12] VITALS: BP 109/65
[2020-01-05] MEDS: ENOXAPARIN 40MG/0.4ML SYR SUBCUT SCH (20:30)
[2020-01-05] MEDS: ATORVASTATIN CALCIUM 10MG TABLET PO SCH (20:30)
[2020-01-05] MEDS: BUDESONIDE 0.5MG/2ML NEB HHN SCH ×2 (21:12→21:51)
[2020-01-06] VITALS (7 sets, daily range): BP systolic 92–116; BP diastolic 48–68
[2020-01-06] MEDS: IPRATROPIUM/ALBUTEROL 0.5-3(2.5)MG/3ML NEB HHN SCH ×4 (03:01→21:12)
[2020-01-06] MEDS: SODIUM CHLORIDE 0.9% INJ 3ML FLUSH IVF SCH ×3 (05:13→22:13)
[2020-01-06] MEDS: METHYLPREDNISOLONE SOD SUCC 40 MG/ML VIAL IV SCH ×2 (08:44→17:14)
[2020-01-06] MEDS: GUAIFENESIN 600MG ER TABLET PO SCH ×2 (08:44→22:12)
[2020-01-06] MEDS: SEVELAMER CARBONATE 800 MG TABLET PO SCH ×3 (08:44→17:14)
[2020-01-06] MEDS: CALCITRIOL 0.25MCG CAPSULE PO SCH (08:44)
[2020-01-06] MEDS: FOLIC ACID/VITAMIN B COMP W-C TABLET PO SCH (08:44)
[2020-01-06] MEDS: BUDESONIDE 0.5MG/2ML NEB HHN SCH (09:18)
[2020-01-06] MEDS: ACETAMINOPHEN 325MG TABLET PO PRN (11:09)
[2020-01-06] MEDS: ATORVASTATIN CALCIUM 10MG TABLET PO SCH (22:12)
[2020-01-06] MEDS: ENOXAPARIN 40MG/0.4ML SYR SUBCUT SCH (22:12)
[2020-01-07 00:13] VITALS: BP 126/70
[2020-01-07] MEDS: IPRATROPIUM/ALBUTEROL 0.5-3(2.5)MG/3ML NEB HHN SCH ×4 (02:54→20:57)
[2020-01-07 04:00] VITALS: BP 104/55
[2020-01-07 06:18] LABS: HEMATOCRIT. 29.3 % (36.0-48.0); HEMOGLOBIN. 9.6 g/dL (12.0-16.0); MEAN CORPUSCULAR HEMOGLOBIN 31.2 pg (28.0-32.0); MEAN PLATELET VOLUME 9.3 fl (7.4-10.4); PLATELET 262 x1000/uL (130-400); RED BLOOD CELL COUNT 3.06 mill/uL (4.2-5.4); RED CELL DISTRIBUTION WIDTH 15.5 % (11.6-14.6)
[2020-01-07 06:22] LABS: CHLORIDE 101 mEq/L (98-107)
[2020-01-07] MEDS: SODIUM CHLORIDE 0.9% INJ 3ML FLUSH IVF SCH ×3 (06:31→21:15)
[2020-01-07 08:03] VITALS: BP 140/65
[2020-01-07] MEDS: BUDESONIDE 0.5MG/2ML NEB HHN SCH ×2 (09:07→20:57)
[2020-01-07] MEDS: FOLIC ACID/VITAMIN B COMP W-C TABLET PO SCH (09:29)
[2020-01-07] MEDS: METHYLPREDNISOLONE SOD SUCC 40 MG/ML VIAL IV SCH ×2 (09:29→17:41)
[2020-01-07] MEDS: CALCITRIOL 0.25MCG CAPSULE PO SCH (09:29)
[2020-01-07] MEDS: GUAIFENESIN 600MG ER TABLET PO SCH ×2 (09:29→21:15)
[2020-01-07] MEDS: SEVELAMER CARBONATE 800 MG TABLET PO SCH ×3 (09:29→17:41)
[2020-01-07 10:53] LABS: PLATELET ESTIMATE NORMAL
[2020-01-07 12:21] VITALS: BP 162/66
[2020-01-07 16:06] VITALS: BP 133/41
[2020-01-07 20:07] VITALS: BP 103/57
[2020-01-07] MEDS: ENOXAPARIN 40MG/0.4ML SYR SUBCUT SCH (21:15)
[2020-01-07] MEDS: ATORVASTATIN CALCIUM 10MG TABLET PO SCH (21:15)
[2020-01-08] VITALS (8 sets, daily range): BP systolic 103–150; BP diastolic 58–73
[2020-01-08] MEDS: IPRATROPIUM/ALBUTEROL 0.5-3(2.5)MG/3ML NEB HHN SCH ×3 (01:53→14:52)
[2020-01-08] MEDS: SODIUM CHLORIDE 0.9% INJ 3ML FLUSH IVF SCH ×2 (06:48→13:56)
[2020-01-08] MEDS: FOLIC ACID/VITAMIN B COMP W-C TABLET PO SCH (08:10)
[2020-01-08] MEDS: METHYLPREDNISOLONE SOD SUCC 40 MG/ML VIAL IV SCH ×2 (08:10→17:12)
[2020-01-08] MEDS: CALCITRIOL 0.25MCG CAPSULE PO SCH (08:10)
[2020-01-08] MEDS: SEVELAMER CARBONATE 800 MG TABLET PO SCH ×3 (08:10→17:12)
[2020-01-08] MEDS: GUAIFENESIN 600MG ER TABLET PO SCH (08:10)
[2020-01-08] MEDS: BUDESONIDE 0.5MG/2ML NEB HHN SCH (10:13)
== END 2020-01-08 20:08 | disposition home or self-care (01) | DRG 133 ==
LOC: ER 14:32 → 6WST 16:18 → EDBEDREQ 16:22 → EDBEDREQTM 16:23 → ENRESERV 16:53
PROVIDERS: ADMIT Internal Medicine; ATTEND Internal Medicine
PROC: 02HV33Z Insertion of Infusion Device into Superior Vena Cava, Percutaneous Approach (ICD-10-PCS; principal; 2020-01-03)
PROC: B5181ZA Fluoroscopy of Superior Vena Cava using Low Osmolar Contrast, Guidance (ICD-10-PCS; 2020-01-03)
DX: J96.01 Acute respiratory failure with hypoxia (principal); I13.2 Hypertensive heart and chronic kidney disease with heart failure and with stage 5 chronic kidney disease, or end stage renal disease; E11.22 Type 2 diabetes mellitus with diabetic chronic kidney disease; E11.51 Type 2 diabetes mellitus with diabetic peripheral angiopathy without gangrene; J44.1 Chronic obstructive pulmonary disease with (acute) exacerbation; D63.8 Anemia in other chronic diseases classified elsewhere; N18.6 End stage renal disease; Z99.2 Dependence on renal dialysis; I50.43 Acute on chronic combined systolic (congestive) and diastolic (congestive) heart failure
CPT/HCPCS: 36415; 71045; 71275; 76937; 78582; 80053; 83605; 83880; 84484; 85025; 85379; 87804; 93005; 93306; 93970; 94618; 94640; 99291; A9558; C1725; J1650; J2920; J2930; J3475; J3490; J7626; Q9967